=== PATIENT | male | born 1955 | race Caucasian/White ===

== ENCOUNTER 2022-07-22 15:36 | Emergency (ER) | payer SELFPAY ==
[~2022-07-22] VITALS: Ht 177.8 cm; Wt 64.0 kg
[2022-07-22] MEDS ORDERED: SODIUM CHLORIDE 0.9% 1,000 ML IV ONE (17:15)
[2022-07-22 19:08] LABS: CHLORIDE 106 mEq/L (98-107)
[2022-07-22 19:15] LABS: BASOPHILS % 0.5 % (0.0-2.0); HEMATOCRIT. 36.9 % (42.0-52.0); HEMOGLOBIN. 12.4 g/dL (14.0-18.0); LYMPHOCYTES % 48.8 % (20.0-50.0); MEAN CORPUSCULAR HEMOGLOBIN 30.6 pg (28.0-32.0); MEAN PLATELET VOLUME 8.1 fl (7.4-10.4); MONOCYTES % 5.4 % (2.0-8.0); NEUTROPHILS % 44.3 % (40.0-76.0); PLATELET 230 x1000/uL (130-400); RED BLOOD CELL COUNT 4.06 mill/uL (4.7-6.1); RED CELL DISTRIBUTION WIDTH 14.7 % (11.6-14.6)
[2022-07-22 19:24] LABS: PARTIAL THROMBOPLASTIN TIME 28.6 sec (23.4-31.0); PROTHROMBIN TIME 10.7 sec (9.6-11.0)
[2022-07-22 19:27] LABS: CLARITY URINE CLEAR (CLEAR); COLOR URINE YELLOW (YELLOW); KETONES URINE TRACE (NEGATIVE); LEUKOCYTE ESTERASE URINE NEGATIVE (NEGATIVE); NITRITE URINE NEGATIVE (NEGATIVE); OCCULT BLOOD URINE NEGATIVE (NEGATIVE); PH URINE 5.5 (4.5-8.0); PROTEIN URINE TRACE (NEGATIVE); SPECIFIC GRAVITY URINE 1.017 (1.005-1.030); UROBILINOGEN URINE 0.2 E.U./dL (0.2-1.0)
[2022-07-22] MEDS ORDERED: IOHEXOL-300 100 ML BOTTLE ONE (20:01)
[2022-07-23 03:47] VITALS: BP 122/64
== END 2022-07-23 03:48 | disposition home or self-care (01) ==
LOC: ER 15:36
DX: R07.89 Other chest pain (principal)
CPT/HCPCS: 36415; 70450; 71045; 71260; 72125; 74177; 80053; 81003; 84484; 85025; 85610; 85730; 86850; 86900; 86901; 93005; 99285; J7030; Q9967